=== PATIENT | female | born 1980 | race Caucasian/White ===

== ENCOUNTER 2017-11-12 20:48 | Emergency (ER) | payer OTHER ==
[~2017-11-12] VITALS: Ht 162.6 cm; Wt 54.4 kg
[~2017-11-12 20:48] MED LIST: CHLO25 PO; Cleocin HCl150 MG PO; Flagyl500 MG PO; HYDACE5 PO; LORA1 PO; MULVITMINE PO; PARO20 PO; PROP10 PO; RANI150 PO; RXHYDACE PO; RXLORA1 PO
[2017-11-12] MEDS ORDERED: LEVSOD75 PO (21:32)
[2017-11-12] MEDS ORDERED: PROP10 PO (21:33)
[2017-11-12] MEDS ORDERED: IBUP600 PO (23:28)
[2017-11-12] MEDS ORDERED: Cleocin HCl300 MG PO (23:28)
== END 2017-11-12 23:51 | disposition home or self-care (01) ==
LOC: ER 20:48
DX: K02.9 Dental caries, unspecified (principal); F17.210 Nicotine dependence, cigarettes, uncomplicated; Z79.899 Other long term (current) drug therapy
CPT/HCPCS: 99283

== ENCOUNTER 2018-02-02 10:20 | Emergency (ER) | payer OTHER ==
[~2018-02-02] VITALS: Ht 162.6 cm; Wt 52.2 kg
[~2018-02-02 10:20] MED LIST changes: +Cleocin HCl300 MG PO; +IBUP600 PO; +LEVSOD75 PO
[2018-02-02] MEDS ORDERED: Bactrim Ds Tab1 EACH PO (10:50)
[2018-02-02] MEDS ORDERED: Keflex500 MG PO (10:50)
[2018-02-02] MEDS ORDERED: Inderal40 MG PO (11:09)
== END 2018-02-02 11:15 | disposition home or self-care (01) ==
LOC: ER 10:20
DX: L03.011 Cellulitis of right finger (principal); E03.9 Hypothyroidism, unspecified; F17.200 Nicotine dependence, unspecified, uncomplicated; Z79.899 Other long term (current) drug therapy
CPT/HCPCS: 99282

== ENCOUNTER 2018-07-28 06:17 | Emergency (ER) | payer OTHER ==
[~2018-07-28] VITALS: Ht 162.6 cm; Wt 52.2 kg
[~2018-07-28 06:17] MED LIST changes: +Bactrim Ds Tab1 EACH PO; +Inderal40 MG PO; +Keflex500 MG PO
[2018-07-28 07:01] LABS: Source, Urine Voided
[2018-07-28 07:08] LABS: Bilirubin, Urine Neg (Neg); Blood, Urine Neg (Neg); Glucose Qualitative, Urine Neg (Neg); Ketones, Urine Neg (Neg); Leukocyte Esterase, Urine 1+ (Neg); Nitrite, Urine Pos (Neg); Protein, Urine Neg (Neg); Urobilinogen, Urine NORM (Normal); pH, Urine 6.5 (5.0-8.0)
[2018-07-28 07:14] LABS: Appearance, Urine Clear (Clear); Color, Urine Yellow (P-Yellow)
[2018-07-28 07:15] LABS: Calcium, Ionized (POC) 1.14 mmol/L (1.10-1.46); Chloride (POC) 99 mmol/L (98-108); Creatinine (POC) 0.7 mg/dL (0.6-1.0); Glucose (ISTAT POC) 106 mg/dL (70-99); Hemoglobin (POC) 15.6 g/dL (12.0-16.0); Potassium (POC) 3.8 mmol/L (3.5-5.5); Sodium (POC) 136 mmol/L (135-148); Total CO2 (POC) 26 mmol/L (21-32)
[2018-07-28 07:15] LABS: Bacteria Many /hpf; Red Blood Cells, Urine Not Seen /hpf (0-2); Squamous Epithelial Cells Few /hpf (Few)
[2018-07-28] MEDS ORDERED: IBUP400 PO (07:33)
[2018-07-29] MEDS ORDERED: Diflucan150 MG PO (21:44)
[2018-07-29] MEDS ORDERED: CEPH500 PO (22:32)
== END 2018-07-28 07:40 | disposition home or self-care (01) ==
LOC: ER 06:17
PROVIDERS: Emergency Medicine
DX: R07.82 Intercostal pain (principal); N19 Unspecified kidney failure; F17.210 Nicotine dependence, cigarettes, uncomplicated; Z79.899 Other long term (current) drug therapy; Z98.51 Tubal ligation status; Z90.49 Acquired absence of other specified parts of digestive tract
CPT/HCPCS: 36415; 71046; 80047; 81001; 85014; 87077; 87086; 87147; 87186; 99283-25

== ENCOUNTER 2018-07-29 18:07 | Emergency (ER) | payer OTHER ==
[~2018-07-29] VITALS: Ht 162.6 cm; Wt 52.2 kg
[~2018-07-29 18:07] MED LIST changes: +IBUP400 PO
[2018-07-29] MEDS ORDERED: Diflucan150 MG PO (21:44)
[2018-07-29 21:48] LABS: Source, Urine Clean Catch
[2018-07-29 21:50] LABS: Blood, Urine 1+ (Neg); Glucose Qualitative, Urine Neg (Neg); Ketones, Urine 1+ (Neg); Leukocyte Esterase, Urine 1+ (Neg); Nitrite, Urine Pos (Neg); Protein, Urine 1+ (Neg); Specific Gravity, Urine 1.015 (1.003-1.022); Urobilinogen, Urine 2+ (Normal)
[2018-07-29 22:03] LABS: Appearance, Urine Hazy (Clear); Bilirubin, Urine 1+ (Neg); Color, Urine Yellow (P-Yellow)
[2018-07-29 22:04] LABS: Amorphous Light (0-Heavy); Bacteria Many /hpf; Calcium Oxalate Crystals Few /hpf; Red Blood Cells, Urine 0-2 /hpf (0-2); Squamous Epithelial Cells Few /hpf (Few)
[2018-07-29] MEDS ORDERED: CEPH500 PO (22:32)
[2018-07-29 23:00] LABS: Candida species (DNA Probe) Negative (NEGATIVE); G. vaginalis (DNA Probe) Positive (NEGATIVE); T. vaginalis (DNA Probe) Negative (NEGATIVE)
[2018-07-31 22:07] LABS: CHLAMYDIA TRACHOMATIS, NAA Negative (Negative); NEISSERIA GONORRHOEAE, NAA Negative (Negative)
== END 2018-07-29 22:40 | disposition home or self-care (01) ==
LOC: ER 18:07
PROVIDERS: Emergency Medicine
DX: N39.0 Urinary tract infection, site not specified (principal); B37.3 Candidiasis of vulva and vagina; Z79.899 Other long term (current) drug therapy; F17.200 Nicotine dependence, unspecified, uncomplicated
CPT/HCPCS: 81001; 81025; 87077; 87086; 87186; 87480; 87491; 87510; 87591; 87660; 99283

== ENCOUNTER 2018-11-19 08:16 | Emergency (ER) | payer OTHER ==
[~2018-11-19] VITALS: Ht 162.6 cm; Wt 49.9 kg
[~2018-11-19 08:16] MED LIST changes: +CEPH500 PO; +Diflucan150 MG PO
--- NOTE | 2018-11-19 08:48 | NUR ---
PATIENT MEDICATED PER ORDERS. UPDATED ON PLAN OF CARE. DENIES OTHER NEEDS AT THIS TIME.
[2018-11-19 08:49] LABS: Source, Urine Clean Catch
[2018-11-19 08:54] LABS: Appearance, Urine Clear (Clear); Bilirubin, Urine Neg (Neg); Blood, Urine Neg (Neg); Color, Urine Pale Yellow (P-Yellow); Glucose Qualitative, Urine Neg (Neg); Ketones, Urine Neg (Neg); Leukocyte Esterase, Urine Neg (Neg); Nitrite, Urine Neg (Neg); Protein, Urine Neg (Neg); Specific Gravity, Urine 1.005 (1.003-1.022); Urobilinogen, Urine NORM (Normal)
[2018-11-19] MEDS ORDERED: IBUP600 PO (09:10)
[2018-11-19] MEDS ORDERED: Norco 5-325 Ta1 EACH PO (09:10)
== END 2018-11-19 09:30 | disposition home or self-care (01) ==
LOC: ER 08:16
PROVIDERS: Physician Assistant
DX: S20.212A Contusion of left front wall of thorax, initial encounter (principal); S20.211A Contusion of right front wall of thorax, initial encounter; F17.210 Nicotine dependence, cigarettes, uncomplicated; Y04.2XXA Assault by strike against or bumped into by another person, initial encounter
CPT/HCPCS: 71046; 81003; 99283-25; A9270-GY

== ENCOUNTER → 2021-07-20 | Outpatient (CLI) | payer OTHER ==
[~2021-07-20] MED LIST changes: +Norco 5-325 Ta1 EACH PO
[2021-07-22 15:07] LABS: HPV 16 Negative (Negative); HPV 18 Negative (Negative); HPV OTHER HR TYPES Negative (Negative)
== END ==
LOC: LAB 15:30 → LAB SHORT 15:30
PROVIDERS: Registered Nurse Community Health
DX: Z12.4 Encounter for screening for malignant neoplasm of cervix (principal)
CPT/HCPCS: 87624; G0123

== ENCOUNTER → 2021-10-06 | Outpatient (CLI) | payer OTHER ==
[2021-10-07 14:05] LABS: Candida species (DNA Probe) Negative (NEGATIVE); G. vaginalis (DNA Probe) Positive (NEGATIVE); T. vaginalis (DNA Probe) Negative (NEGATIVE)
== END | disposition home or self-care (01) ==
LOC: LAB SHORT 17:35 → LAB 17:35
PROVIDERS: Nurse Practitioner Family
DX: N89.8 Other specified noninflammatory disorders of vagina (principal)
CPT/HCPCS: 87480; 87510; 87660

== ENCOUNTER → 2022-09-07 | Outpatient (CLI) | payer OTHER ==
[2022-09-07 22:05] LABS: Bun/Creatinine Ratio 21.6 (12.0-20.0); Calcium, Blood 9.7 mg/dL (8.5-10.1); Creatinine, Blood 0.69 mg/dL (0.40-1.00); Potassium, Blood 3.8 mmol/L (3.5-5.5)
[2022-09-08 08:10] LABS: HIV AB/P24 AG SCREEN Non Reactive (Non Reactive)
== END | disposition home or self-care (01) ==
LOC: LAB SHORT 16:42 → LAB 16:42
PROVIDERS: Nurse Practitioner Family
DX: Z11.4 Encounter for screening for human immunodeficiency virus [HIV] (principal); Z11.59 Encounter for screening for other viral diseases; E87.6 Hypokalemia
CPT/HCPCS: 80048; 86803; 87389